=== PATIENT | female | born 1960 | race Caucasian/White ===

== ENCOUNTER 2021-08-09 08:35 | Day surgery (SDC) | payer OTHER ==
[2021-08-09] MEDS ORDERED: Ringers Lactate 1,000 ML IV ONE ×3 (08:41→15:35)
[2021-08-09] MEDS ORDERED: NS 0.9% VIAL 30 ML ONE (08:42)
[2021-08-09] MEDS ORDERED: GENTAMICIN SULF 80 MG/2ML INJ ONE (08:42)
[2021-08-09] MEDS ORDERED: CEFAZOLIN SODIUM 1 GM/VIAL ONE (08:42)
--- NOTE | 2021-08-09 08:53 | RAD REPORT ---
EXAM DESCRIPTION: RAD - Chest Pa And Lat (2 Views) - 08/09/2021 8:38 am CLINICAL HISTORY: pre op COMPARISON: No comparisons FINDINGS: Lines: None. Lungs: No evidence of edema or pneumonia. Pleural: No significant pleural effusions or pneumothorax. Cardiac: The heart size is within normal limits. Bones: No acute fractures. Other: IMPRESSION: No acute cardiopulmonary disease.
[2021-08-09] MEDS ORDERED: SCOPOLAMINE HYDROBROMIDE PATCH TD ONE (09:03)
[2021-08-09] MEDS ORDERED: CEFAZOLIN/NS 1gm 1 GM/50 ML BAG ONE (09:03)
[2021-08-09] MEDS ORDERED: dexAMETHasone 10 MG/ML VIAL ONE (11:10)
[2021-08-09] MEDS ORDERED: propofoL 200 MG/20 ML VIAL IV ONE (11:10)
[2021-08-09] MEDS ORDERED: MIDAZOLAM HCL 2 MG/2 ML INJ ONE (11:10)
[2021-08-09] MEDS ORDERED: ONDANSETRON 4 MG/2 ML VIAL ONE (11:10)
[2021-08-09] MEDS ORDERED: FENTANYL CITR 100 MCG/2 ML ONE ×3 (11:10→16:17)
[2021-08-09] MEDS ORDERED: KETOROLAC 30 MG/ML INJ ONE (11:11)
[2021-08-09] MEDS ORDERED: LIDOCAINE 2% MPF 5 ML VIAL ONE (11:11)
[2021-08-09] MEDS ORDERED: ROCURONIUM 50 MG/5 ML VIAL IV ONE ×2 (11:11→13:31)
[2021-08-09] MEDS: LIDOCAINE 1% W/EPI 1:100,000 MDV 20 ML VIAL ONE ×2 (11:40→16:12)
[2021-08-09] MEDS ORDERED: GLYCOPYRROLATE 0.2 MG/ML SYR ONE ×2 (13:21→16:06)
--- NOTE | 2021-08-09 13:45 | HP ---
Date of Admission: 08/09/2021 History Of Present Illness: A 60-year-old white female who is status post breast lift with ankle excision in 1985 and then needed upper pole fullness, underwent breast augmentation in 2004. retropectoral. She believe it is approximately 450 or 470 cc, she is not sure. She has history of depression in her thyroid function. She has had a previous surgery as described plus other operations including, hysterectomy, and C-sections. Allergies: NO ALLERGIES. Medications: She is on thyroid medication. Social History: Does not smoke or drink. Physical Examination: Vital Signs: She is 5 feet 4 inches, 157 pounds. General: On examination, she has ankle scars from previous breast lift. The right implant is ruptured and deflated. The left is located near the axilla. It is movable. They appeared to be retropectoral. Nipple sensation intact. Assessment: Breast ptosis and the ruptured implant. Plan: Explant breast lift. She also requesting a lip lift and we are going to do a lip lift at the same time. SHAHRAM Voice ID: [id number] [facility]
[2021-08-09] MEDS ORDERED: EPHEDRINE SULF 50 MG/ML VIAL ONE (14:56)
[2021-08-09] MEDS ORDERED: NS 0.9% VIAL 10 ML ONE (14:56)
[2021-08-09] MEDS ORDERED: Mastisol Adhesive Liq ONE ×2 (16:02→16:58)
[2021-08-09] MEDS ORDERED: NEOSTIGMINE 1 MG/ML -5 ML ONE (16:06)
[2021-08-09] MEDS: HYDROMORPHONE HCL 1 MG/ML INJ ONE ×6 (17:25→17:53)
--- NOTE | 2021-08-09 18:06 | OP ---
Surgeon: Alejandro Lundy MD Preoperative Diagnosis: Ruptured right implant, breast descent, and lip ptosis. Postoperative Diagnosis: Ruptured right implant, breast descent, and lip ptosis. Procedure Performed: Explant lift and lip lift. Anesthesia: General. Procedure In Detail: After satisfactory general anesthesia, DuraPrep was used to prep the breast. D ry sterile drapes were applied in usual manner. 45 mm template was used to outline the right and lef t areolas. Skin incision was made with a 15 blade. Then a transverse curvilinear incisions were mad e and the skin was de-epithelialized with dermabrader or with the tenotomy scissors. The right breas t was approached first. The flap was elevated approximately 1.5 cm thick toward the sternum clavicle anterior axillary line. Then the inferior incision was made. The tissue was formed into a cone aft er incision was made at below pectoralis muscle removing the ruptured implant. It was folded upon it self and weighed about 400 cc. Conization was performed with 2-0 PDS sutures. Then straps were elev ated at 12 o'clock, 1:30 and 3 o'clock position, and then the straps were woven in and out on the pec toralis muscle back to the base of the cone, back to pectoralis muscle, back to base of cone, tied to itself with 2-0 PDS suture. This done for 12 o'clock and 1:30 strap. 3 o'clock strap was sewn over the sternum at 3 o'clock position with 2-0 Ethibond. Left breast was done in a mirror-image manner. The implant there was intact. It weighed 500 g after removal. It was also strapped 1:40. The pat ient was sat up. The dog ears laterally were marked out and then the patient was returned supine, th e dog ears were excised. Electrocautery was used for hemostasis. A 10 LEX was brought out of the axi lla. The wound was irrigated with dilute antibiotic solution and then the wound was closed with 3-0 Vicryl subcutaneous, 3-0 PDS running subcuticular, tied for medial to lateral, lateral to medial, tie d in the vertical meridian of the breast. Both sides were done. Then the patient was sat up. Site for new nipple-areolar complex was marked out. Tissue was cored out with a 45 mm template. Nipple a reolar complex was delivered, sewn with interrupted 4-0 PDS followed by 4-0 PDS running subcuticular. Dressings consisted of tincture of benzoin, Steri-Strips, 5-0 Ethilon, fluffs, and Juna wrap. Atten tion was turned to lip. Xylocaine with epinephrine was used to infiltrate, 5 cc were used in the pre marked area, then prepped with Betadine. A 15 blade was used to excise tissue, then closed in layers with a running 4-0 PDS suture, tied in the midline, and then a running 6-0 Prolene dermal suture was brought out cephalad and then held in place with Steri-Strips. The patient tolerated procedure well and returned to Recovery. GISELA/KARY Voice ID: [id number] Report ID: [id number]
[2021-08-09] MEDS ORDERED: HYDROCODONE/APAP 10/325 TAB ONE (18:15)
[2021-08-09 19:05] VITALS: BP 104/65; TEMP 98.4; O2SAT 96
--- NOTE | 2021-08-12 03:42 | HP ---
Date of Admission: 08/09/2021 History Of Present Illness: A 60-year-old white female who is status post breast lift with ankle excision in 1985 and then needed upper pole fullness, underwent breast augmentation in 2004, a saline retropectoral. She believes it was approximately 450 or 470 cc, she is not sure. She has history of depression in her thyroid function. She has had a previous surgery as described plus other operations including hysterectomy, and C-sections. Allergies: NO ALLERGIES. Medications: She is on thyroid medication. Social History: Does not smoke or drink. Physical Examination: Vital Signs: She is 5 feet 4 inches, 157 pounds. General: On examination, she has ankle scars from previous breast lift. The right implant is ruptured and deflated. The left is located near the axilla. It is movable. They appeared to be retropectoral. Nipple sensation intact. Assessment: Breast ptosis and the ruptured implant. Plan: Explant breast lift. She also requesting a lip lift and we are going to do a lip lift at the same time. SHAHRAM Voice ID: [id number] [facility]
--- NOTE | 2021-09-12 09:51 | OP ---
Date of Procedure: 08/09/2021 Surgeon: Alejandro Lundy MD [employer] Stripper Etcher: Mack. Preoperative Diagnosis: Breast enlargement. Postoperative Diagnosis: Breast enlargement. Procedure Performed: Breast lift. Anesthesia: General. Description Of Procedure: After satisfactory induction of general anesthesia, the chest was prepped with DuraPrep, dry sterile drapes applied in the usual manner. A 5 cm template was used to outline t he right and left areola. Then, the transverse curvilinear incisions were made. Intervening skin wa s de-epithelialized. Dissection was proceeded down to the dorsal fascia. DICTATION ENDS HERE GISELA/KARY Voice ID: [id number] Report ID: [id number]
--- NOTE | 2021-09-14 13:00 | OP ---
Date of Procedure: 08/09/2021 Surgeon: Alejandro Lundy MD Computer Education Teacher: Mack. Preoperative Diagnosis: Excess skin on left and breast enlargement. Procedure Performed: Breast lift and breast reduction on left, explantation. Anesthesia: General. Procedure In Detail: After satisfactory induction of general anesthesia, the chest was prepped with DuraPrep, dry sterile drapes applied in the usual manner. A 5 cm template was used to outline the ri ght and left areola. Then, transverse curved incisions were made. Intervening skin was de-epithelia lized with dermabrader in both breasts. Then, a transverse incision was made on the right breast and the flaps were elevated towards the sternum, clavicle, and anterior axillary line. Then, the inferi or incision was made. The excess of breast tissue was resected and then conization was performed usi ng 2-0 PDS suture. Straps were elevated at 12 o'clock, 1:30, and 3 o'clock position and the straps w ere woven in and out on the pectoralis muscle back to the base of the cone, back to the pectoralis mu scle, back to base of the cone, tied to itself with 2-0 PDS. This was done for the 12 o'clock and 1: 30 strap. The 3 o'clock strap was sewn over the sternum at 3 o'clock position with 2-0 Ethibond. Th e wound was temporarily stapled shut. Left side was done in mirror-image manner. We then returned t o the right side, opened the wounds, irrigated with antibiotic solution, resected medial and lateral dog ears as necessary and then closed the wound after a 10 LEX was brought out of the axilla, sewn in place with 2-0 silk, closed with 3-0 Vicryl subcu and 3-0 PDS running subcuticular tied from medial t o lateral, lateral to medial, tied in the vertical meridian of the breast. Left side was done in mitesh ntical manner. The patient was sat up. Site for new nipple-areolar complex was marked out. The tis rohan was cored out with a 5 cm template and nipple-areolar complex delivered and sewn with interrupted 4-0 PDS followed by 4-0 PDS running subcuticular. Dressings consisted of tincture of benzoin, Steri -Strips, 5 x 5's, fluffs, and Juan wraps. Attention was turned to lip, it was injected with 1% Xyloca ine with epinephrine and it had been previously marked out in the holding area for the intended incis ion pattern. After skin was incised, electrocautery was used for hemostasis and then the wound was c losed with a running 5-0 PDS locking suture followed by 6-0 Prolene running subcuticular. Dressings consisted of tincture of benzoin, Steri-Strips . The patient tolerated the procedure well. The amount removed from the right breast was 186 g, left breast was 324 g. The left breast implant weighed 504 g and the right implant . GISELA/KARY Voice ID: [id number] Report ID: [id number]
== END 2021-08-09 19:12 | disposition home or self-care (01) ==
LOC: OR 08:35
PROVIDERS: ATTEND Specialist
PROC: 0HPU0JZ Removal of Synthetic Substitute from Left Breast, Open Approach (ICD-10-PCS; 2021-08-09)
PROC: 0HSV0ZZ Reposition Bilateral Breast, Open Approach (ICD-10-PCS; 2021-08-09)
PROC: 0J0 Subcutaneous Tissue and Fascia, Alteration (ICD-10-PCS; 2021-08-09)
PROC: 0HPT0JZ Removal of Synthetic Substitute from Right Breast, Open Approach (ICD-10-PCS; principal; 2021-08-09 09:30)
DX: N64.81 Ptosis of breast (principal); L98.7 Excessive and redundant skin and subcutaneous tissue; Z45.812 Encounter for adjustment or removal of left breast implant; Z45.811 Encounter for adjustment or removal of right breast implant
CPT/HCPCS: 19330; 19328; 19316; 15839 ×2; 93005; 88305; 71046; J2704; J1580; J2250; J3010 ×3; J1100; J1170 ×3; J2710; J0690 ×2; J7120 ×3; J2405